=== PATIENT | male | born 1950 | race African-American/Black ===

== ENCOUNTER 2018-12-26 12:14 | Day surgery (SDC) | payer OTHER ==
[2018-12-25 12:00] VITALS: BMI 27.9
--- NOTE | 2018-12-26 12:37 | HP ---
History & Physical Update - History History: No Change - Physical Physical: No Change - Assessment Assessment: No Change - Plan Plan: No Change
--- NOTE | 2018-12-26 12:38 | OP ---
Operative Note - Note: Operative Date: 12/26/18 Pre-Operative Diagnosis: L ureteral calculus Operation: LULL JJ stent insertion Findings: 6 mm L distal ureteral calculus Post-Operative Diagnosis: Same as Pre-op Surgeon: Jeovany Smith Anesthesiologist/DIRECTOR MEETINGS: Sterling Antony Anesthesia: General Specimens Removed: L ureteral calculi Estimated Blood Loss (mls): 0 Drains & Tubes with Location: 6 fr 26 cm L JJ Operative Report Dictated: Yes
[2018-12-26] MEDS ORDERED: PROPOFOL 20 ML ONE (14:53)
[2018-12-26] MEDS ORDERED: MIDAZOLAM HCL 2 MG/2 ML SINGLE DOSE VIAL ONE (15:05)
[2018-12-26] MEDS ORDERED: CLINDAMYCIN 600 MG PREMIX BAG IVPB ONE (15:30)
[2018-12-26] MEDS ORDERED: DEXAMETHASONE SOD PHOSPHATE 4 MG/1 ML VIAL ONE (15:31)
[2018-12-26] MEDS ORDERED: KETOROLAC TROMETHAMINE 30 MG/1 ML VIAL ONE (15:57)
[2018-12-26] MEDS ORDERED: oxyCODONE HCL 5 MG TABLET PO PRN (16:56)
[2018-12-26] MEDS ORDERED: ONDANSETRON 4 MG/2 ML VIAL IVPUSH PRN (16:56)
[2018-12-26] MEDS ORDERED: LACTATED RINGERS SOLUTION 1,000 ML IV SCH (17:00)
[2018-12-26 19:08] VITALS: BP 167/93; PULSE 78; TEMP 97.6
--- NOTE | 2018-12-27 06:14 | OP ---
DATE OF OPERATION: 12/26/2018 PREOPERATIVE DIAGNOSIS: Left ureteral calculus. POSTOPERATIVE DIAGNOSIS: Left ureteral calculus. PROCEDURE: Left ureteroscopic laser lithotripsy, left double J stent insertion. SURGEON: Jeovany Smith MD COMMERCIAL FISHER: None. ANESTHESIA: General. NURSE GIRL FRIDAY: SPECIMENS: Right ureteral calculus. CULTURES: None. DRAINS: 6-Tongan 26-cm left double J stent. ESTIMATED BLOOD LOSS: None. COMPLICATIONS: None. DESCRIPTION OF PROCEDURE: Patient was brought into the operating room. Placed on the operating table in supine position. After administration of general anesthesia via laryngeal mask, intravenous antibiotics were administered. Sequential compression devices were placed. Genitals were prepped and draped in the usual sterile manner. A 22-Tongan cystoscope was inserted into the bladder under direct vision. The anterior urethra was normal. The prostatic urethra demonstrated trilobar, occlusive BPH. The bladder was entered and thoroughly inspected. There was no foreign bodies, tumors, stones, inflammation. Both ureteral orifices were in their usual location with clear efflux bilaterally. There was a moderate-sized median lobe. Left ureteral orifice was cannulated with a 0.038 guidewire, advised to the level of the left renal pelvis under fluoroscopic and direct visual guidance. Dual-lumen catheter was entered. A retrograde pyelogram was done. Demonstrated left distal ureteral calculus to be radiolucent. Dual-lumen catheter was removed. Cystoscope was removed. Bladder was emptied, and now the semirigid ureteroscope was inserted alongside the guidewire to the level of the distal ureter where a 6-mm stone was visualized. Laser lithotripsy was done with a 365-micron laser fiber. The stone was fragmented into small pieces, basketed, and removed. Retrograde pyelogram demonstrated no extravasation of contrast, mild left hydronephrosis. Guidewire was in good position in the left renal pelvis. The ureteroscope was removed, cystoscope backloaded, and the 6-Tongan 26-cm left double J stent was inserted over the guidewire under direct visual and fluoroscopic guidance leaving 1 coil in the renal pelvis and 1 coil in the bladder. The bladder was emptied. Cystoscope removed. Stent was secured to the penis with a suture and a Tegaderm. Tolerated the procedure well. Transferred to recovery in stable condition. Jake [id number]
--- NOTE | 2018-12-27 18:49 | EKG ---
Test Reason : Blood Pressure : / mmHG Vent. Rate : 086 BPM Atrial Rate : 086 BPM P-R Int : 174 ms QRS Dur : 100 ms QT Int : 384 ms P-R-T Axes : 038 -21 028 degrees QTc Int : 459 ms NORMAL SINUS RHYTHM MINIMAL VOLTAGE CRITERIA FOR LVH, MAY BE NORMAL VARIANT BORDERLINE ECG NO PREVIOUS ECGS AVAILABLE Confirmed by AGUEDA NORMAN MD ([id number]) on 12/27/2018 6:49:36 PM Referred By: Jeovany Smith Confirmed By:AGUEDA NORMAN MD
--- NOTE | 2018-12-29 12:24 | PATH ---
Surgical Pathology Report Patient Name: GLENDY LOBATO [facility]. Rec. #: [id number] /Age/Gender: 1950 (Age: 68) / M Account: [id number] Location: [facility] Taken: 12/26/2018 Received: 12/29/2018 Reported: 12/29/2018 Physicians: Jeovany Smith M.D. Specimen(s) Received LEFT URETERAL STONE Clinical History Calculus of kidney Final Diagnosis URETERAL STONE, LEFT, LASER LITHOTRIPSY: URETEROLITHIASIS. MACROSCOPIC DIAGNOSIS. Electronically Signed Keren Overton M.D. Gross Description Received fresh labeled "left ureteral stone" are 3 chen, irregular, fragmented calculi ranging in size from 0.1-0.4 cm. The specimen is sent for chemical analysis. MLSZ/12/29/2018 sanml/12/29/2018
[2019-01-05 14:07] LABS: CA OXALATE MONOHYDR. 95 % (.)
== END 2018-12-26 18:35 | disposition home or self-care (01) ==
LOC: JASU-SURG 12:14
PROVIDERS: ATTEND Urology
PROC: 0TF78ZZ Fragmentation in Left Ureter, Via Natural or Artificial Opening Endoscopic (ICD-10-PCS; principal; 2018-12-26 14:30)
PROC: 0T778DZ Dilation of Left Ureter with Intraluminal Device, Via Natural or Artificial Opening Endoscopic (ICD-10-PCS; 2018-12-26 14:30)
DX: N20.1 Calculus of ureter (principal)
CPT/HCPCS: 36415; 71046-TC-FY; 76000-TC-FY; 82360; 88300-TC; 93005; 93010; 94760